=== PATIENT | male | born 1950 | race Caucasian/White ===

== ENCOUNTER → 2017-01-04 | Outpatient (CLI) | payer MEDICARE ==
[~2017-01-04] MED LIST: CARV-39 PO; CARV12.52 PO; ERGO500017 PO; FOLI-17 PO; FURO20TA3 PO; GLIP5TAB10 PO; HYDR12.53 PO; INSU100I18 SQ-INSULIN; INSU100I28 SQ-INSULIN; LISI-170 PO; LISI1TAB7 PO; METF500T4 PO; METO50TA82 PO; PRAV40TA2 PO; WARF2TAB7 PO; WARF7.5T PO-COUM
== END | disposition home or self-care (01) ==
LOC: CFH 13:44
PROVIDERS: ATTEND Internal Medicine Cardiovascular Disease
DX: I08.1 Rheumatic disorders of both mitral and tricuspid valves (principal); I48.2 Chronic atrial fibrillation
CPT/HCPCS: 93306